=== PATIENT | female | born 1985 | race Caucasian/White ===

== ENCOUNTER 2018-08-04 16:48 | Inpatient (IN) | payer MEDICAID ==
[~2018-08-04] VITALS: Ht 160 cm; Wt 56.6 kg
[2018-08-04 17:23] VITALS: Ht 160 cm; Wt 56.6 kg
[2018-08-04 17:24] VITALS: BP 104/68; PULSE 74; RESP 18
[2018-08-04] MEDS ORDERED: LACTATED RINGER'S 1,000 ML IV SCH (17:25)
[2018-08-04] MEDS ORDERED: PNV11TAB PO (17:28)
[2018-08-04] MEDS ORDERED: METHYLERGONOVINE 0.2 MG INJ IM PRN ×2 (17:30→22:00)
[2018-08-04] MEDS ORDERED: CARBOPROST 250 MCG INJ IM PRN ×2 (17:30→22:00)
[2018-08-04] MEDS ORDERED: LIDOCAINE 1% (MPF) 30 ML INJ INJ PRN (17:30)
[2018-08-04] MEDS ORDERED: BUTORPHANOL 1 MG INJ IV PRN (17:30)
[2018-08-04] MEDS ORDERED: OXYTOCIN 30 UNITS/LR 500 ML IV PRN ×2 (17:30→22:00)
[2018-08-04] MEDS ORDERED: BUTORPHANOL 2 MG INJ IV PRN (17:30)
[2018-08-04] MEDS ORDERED: AMPICILLIN 2 GM/NS (PMX) 100 ML IV ONE (17:30)
[2018-08-04] MEDS ORDERED: OXYTOCIN 30 UNITS/LR 500 ML IV SCH ×2 (17:30)
[2018-08-04] MEDS ORDERED: MISOPROSTOL 200 MCG TAB PR PRN ×2 (17:30→22:00)
--- NOTE | 2018-08-04 20:04 | HP ---
Date/Time of Note Date/Time of Note DATE: 08/04/18 TIME: 19:58 OB - History Hx of Present Free Text/Dictation 33y.o at 38w3d in active labor with SROM at 08/04/18 initial VE 2-3/70/-2 CAT I tracing GBS neg no record is availble. admitted for expectnat management. Chief Complaint: uc's with srom Estimated Due Date: Aug 15, 2018 : 2 Para: 1 Spontaneous : 0 Therapeutic : 0 Care: Other Ultrasounds: Other Obstetrical Complications: None Medical Complications: None Past Family/Social History * Past Medical, Surgical, Family and Obstetric Histories reviewed from chart. Blood Type: O+ Rubella: immune RPR/VDRL: Negative GBS Status: Negative HBsAG: Negative OB Admission Exam Vital Signs Vital Signs Vital Signs Date Temp Pulse Resp B/P (MAP) Pulse Ox O2 O2 Flow FiO2 Time Delivery Rate 08/04/18 92 21 19:35 08/04/18 98.1 74 18 104/68 17:24 (80) Physical Exam HEENT: WNL Heart: Rhythm Normal Lungs: Clear, Equal Abdomen: WNL Extremities: Normal Reflexes: Normal Cervical Dilatation: other (2-3) Effacement: Other (70) Station: -2 Membranes: Ruptured Amniotic Fluid: Clear Heart Rate: 140's Accelerations: Accelerations Present Decelerations: No Decelerations Varibility: Moderate Contractions on Admission: >10 Minutes Apart Intensity: Mild Last 72 hours Lab Results CBC & BMP 08/04/18 18:00 OB Assessment/Plan Reason for admission: rupture of membranes Other Assessment: IUP 38w3d in labor Plan: Expectant Management RONY BAZAN MD Aug 04, 2018 20:04
--- NOTE | 2018-08-04 20:06 | LDN ---
Date/Time of Note Date/Time of Note DATE: 08/04/18 TIME: 20:04 Delivery Summary of normal female with nuchal cord with cord tangled up on rt leg Weeks of Gestation 38w3d Placenta Delivered: Spontaneously, Intact & Complete Meconium: none Episiotomy: No Perineal laceration: 1 Laceration repair: 000 ch gut Anesthesia type: Local Estimated blood loss: 100 Sponge & Needle done & correct: Yes All needle counts correct: Yes Any foreign bodies felt in the: No Delivery Information Sex Sex: female Apgars 1 Minute: 8 5 Minute: 9 Suctioning Nose & mouth suctioned at david: Yes Delee suction performed: Yes Umbilical Cord Umbilical cord with: 3 Vessels Cord presentations: nuchal cord Nuchal cord present X: 1 Cord Blood was obtained: Yes Mother & Baby Disposition Disposition Mom & Baby to Maternity; Good: Yes Mom transferred to: Other Baby to NICU: No () RONY BAZAN MD Aug 04, 2018 20:06
[2018-08-04 21:00] VITALS: BP_SYST 108; BP_SYST 114; BP_DIAS 59; BP_DIAS 69; PULSE 77; PULSE 86; RESP 19
[2018-08-04] MEDS ORDERED: AMPICILLIN 1 GM/NS (PMX) 50 ML IV SCH (21:30)
[2018-08-04] MEDS ORDERED: ZOLPIDEM 5 MG TAB PO PRN (22:00)
[2018-08-04] MEDS: SENNA/DOCUSATE NA (8.6MG/50MG) TAB PO SCH (22:00)
[2018-08-04] MEDS ORDERED: BENZOCAINE 20% 56 ML SPRAY TOP PRN (22:00)
[2018-08-04] MEDS ORDERED: OXYCODONE/ASPIRIN (4.88/325) TAB PO PRN ×2 (22:00)
[2018-08-04] MEDS ORDERED: WITCH HAZEL/GLYCERIN PAD PR PRN (22:00)
[2018-08-04] MEDS ORDERED: LANOLIN HPA 1 PKT TOP PRN (22:00)
[2018-08-04] MEDS: IBUPROFEN 600 MG TAB PO SCH (23:56)
[2018-08-05] VITALS: BP 108/58; PULSE 77; RESP 18
[2018-08-05] MEDS ORDERED: LACTATED RINGER'S 1,000 ML IV SCH
[2018-08-05 04:00] VITALS: BP 125/70; PULSE 83; RESP 20
[2018-08-05] MEDS: IBUPROFEN 600 MG TAB PO SCH ×4 (05:46→23:34)
[2018-08-05 08:40] VITALS: BP 97/55; PULSE 102; RESP 18
[2018-08-05] MEDS: SENNA/DOCUSATE NA (8.6MG/50MG) TAB PO SCH ×2 (08:54→21:00)
[2018-08-05 12:05] VITALS: BP 105/52; PULSE 78; RESP 16
--- NOTE | 2018-08-05 15:11 | QN ---
Documentation Comment PPD#1 is stable afebrile tolerates diet No VB +BM +voids VS stable Gen NAD Abd soft NT ND Genitalia No blood at perineum --->discharge home tomorrow --->Ambulation MUNA WARD M.D. Aug 05, 2018 15:11
[2018-08-05 15:41] VITALS: BP 94/54; PULSE 89; RESP 20
[2018-08-05 20:00] VITALS: BP 108/65; PULSE 77; RESP 18
[2018-08-06 03:48] VITALS: BP 88/52; PULSE 77; RESP 18
[2018-08-06] MEDS: IBUPROFEN 600 MG TAB PO SCH ×2 (05:31→12:00)
--- NOTE | 2018-08-06 07:57 | DS ---
Date/Time of Note Date/Time of Note DATE: 08/06/18 TIME: 07:56 Obstetrical Discharge Record Final Diagnosis Final Diagnosis: Term delivered Vaginal Delivery Obstetrical Delivery: Spontaneous Complications Augmentation: Yes Induction: No Rupture of Membranes: No Condition on Discharge Physical Assessment Voiding: Yes Bowel Movement: Yes Breast: Soft, non-tender, Filling Fundus: Firm Abdomen and Incision: soft, not tender Calf Tenderness: No Patient Condition: Good MELA ROGERS MD Aug 06, 2018 07:57
[2018-08-06 08:00] VITALS: BP 106/72; PULSE 48; RESP 18
[2018-08-06] MEDS: SENNA/DOCUSATE NA (8.6MG/50MG) TAB PO SCH (08:34)
[2018-08-06] MEDS ORDERED: DIPHTH/TET/ACEL PERTUSS (ADULT) 0.5 ML VIAL IM* ONE (09:00)
--- NOTE | 2018-08-07 14:19 | DELSUM ---
Delivery Summary A-C Datetime Report Generated by CPN: 08/07/2018 14:18 DELIVERY PERSONNEL Top Stitcher: Alton Jasso MATERNAL INFORMATION Delivery Anesthesia: None Medications in Delivery: Oxytocin 30units in 500mL LR Delivery QBL (ml): 111 Placenta Cultured: Yes Maternal Complications: None LABOR SUMMARY EDC: 08/15/2018 00:00 No. Babies in Womb: 1 Attempted: No Labor Anesthesia: IV Sedation LABOR INFORMATION Reason for Induction: Not Applicable Onset of Labor: 08/04/2018 09:00 Complete Dilatation: 08/04/2018 19:09 Oxytocin: N/A Group B Beta Strep: Negative Antibiotics # of Doses: 0 Steroids Given: None Reason Steroids Not Administered: Not Applicable MEMBRANES Membranes Rupture Method: Spontaneous Rupture of Membranes: 08/04/2018 09:00 Length of Rupture (hr): 10.38 Amniotic Fluid Color: Clear Amniotic Fluid Amount: Moderate Amniotic Fluid Odor: None STAGES OF LABOR Stage 1 hr: 10 Stage 1 min: 9 Stage 2 hr: 0 Stage 2 min: 14 Stage 3 hr: 0 Stage 3 min: 4 Total Time in Labor hr: 10 Total Time in Labor min: 27 VAGINAL DELIVERY Episiotomy: None Laceration Extension: First Degree Laceration Type: Perineal Laceration Repair: Yes Initial Vag Sponge Count: 10 Final Vag Sponge Count: 10 Initial Vag Sharps Count: 1 Final Vag Sharps Count: 2 Sponge Count Correct: Yes; Vaginal Sweep Performed Sharps Count Correct: Yes Count Comment: added 1 sharp BABY A INFORMATION Infant Delivery Date/Time: 08/04/2018 19:23 Method of Delivery: Vaginal Born in Route : No : N/A Forceps: N/A Vacuum Extraction: N/A Shoulder Dystocia : N/A SHOULDER DYSTOCIA BABY A Delivery Date/Time: 08/04/2018 19:23 PRESENTATION/POSITION BABY A Presentation: Cephalic Cephalic Presentation: Vertex Vertex Position: Left Occipital Anterior Breech Presentation: N/A PLACENTA INFORMATION BABY A Placenta Delivery Time : 08/04/2018 19:27 Placenta Method of Delivery: Spontaneous Placenta Status: Delivered SCORES BABY A Heart Rate 1 min: >100 bpm Resp Effort 1 min: Good Cry Reflex Irritability 1 min: Cough/Sneeze/Pulls Away Muscle Tone 1 min: Active Motion Color 1 min: Blue/Pale Resuscitation Effort 1 min: Tactile Stimulation SCORE 1 MIN: 8 Heart Rate 5 min: >100 bpm Resp Effort 5 min: Good Cry Reflex Irritability 5 min: Cough/Sneeze/Pulls Away Muscle Tone 5 min: Active Motion Color 5 min: Body Ramos, Extremit Blue Resuscitation Effort 5 min: Tactile Stimulation SCORE 5 MIN: 9 INFORMATION BABY A Gestational Age at Delivery: 38.3 Gestational Status: Early Term- 37- 38.6 Weeks Infant Outcome : Liveborn Condition : Stable Sex: Female IDENTIFICATION/MEDS BABY A ID Band Number: [id number] ID Band Location: Right Leg; Left Arm Sensor Applied: Yes Sensor Number: [id number] Sensor Location : Cord Clamp Vitamin K Given : Not Given Erythromycin Given: Not Given WEIGHT/LENGTH BABY A Infant Birthweight (gm): 2840 Weight (lb): 6 Weight (oz): 4 Length (in): 19.00 Length (cm): 48.26 CORD INFORMATION BABY A No. Cord Vessels: 3 Nuchal Cord : Around Neck x1, Loose Nuchal Cord- Other: AROUND BODY X1 Cord Blood Taken: Yes Banking/Donate Info: NO Infant Suction: Mouth; Nose ASSESSMENT BABY A Infant Complications: Multiple Variable Decels Physical Findings at Delivery: Caput Succedaneum; Molding of the Head; Bruising Physical Findings- Other: mild facial bruising noted Infant Respirations: Appears Normal White Mixing Operator/ALS Called : No Infant Care By: NICU RT/STELLA Chandra RN Transferred To: Remains with Mother
== END 2018-08-06 13:40 | disposition home or self-care (01) | DRG 807 ==
LOC: L-D 16:48 → OBT 16:48 → L-D 17:30 → PP1 21:03
PROVIDERS: ADMIT Specialist; ATTEND Specialist
PROC: 10E0XZZ Delivery of Products of Conception, External Approach (ICD-10-PCS; principal; 2018-08-04)
PROC: 0HQ9XZZ Repair Perineum Skin, External Approach (ICD-10-PCS; 2018-08-04)
PROC: 4A1HXCZ Monitoring of Products of Conception, Cardiac Rate, External Approach (ICD-10-PCS; 2018-08-04)
DX: O69.81X0 Labor and delivery complicated by cord around neck, without compression, not applicable or unspecified (principal); Z37.0 Single live birth; O69.82X0 Labor and delivery complicated by other cord entanglement, without compression, not applicable or unspecified; Z3A.38 38 weeks gestation of pregnancy; O70.0 First degree perineal laceration during delivery
CPT/HCPCS: 80307; 81001; 84112; 85025; 85610; 85730; 86592; 86850; 86900; 86901; 87340; 94760; 99464; G0463; J0290; J0595; J2590; J7120